=== PATIENT | female | born 1935 | race Caucasian/White ===

== ENCOUNTER → 2017-02-25 | Outpatient (CLI) | payer MEDICARE ==
[~2017-02-25] MED LIST: ALBU6.7H INH; AMIT25TA PO; AMOXICILLIN; APPLE CIDER VINEGAR PO; ASPI-621 PO; CALC-112 PO; CO Q10 PO; FISH OIL PO; FLOVENT INH; FURO80TA3 PO; GABA600T2 PO; GLUC-149 PO; LACT1CAP40 PO; LEVO112T4 PO; MELATONIN PLUS PO; MULT1TAB60 PO; NAPR220C2 PO; OMEPRAZOLE PO; POTA20TA89 PO; PRAV80TA2 PO; PREDNISONE; TYLENOL PM PO; VITAMIN B12 PO
== END | disposition home or self-care (01) ==
LOC: STAR 12:48
PROVIDERS: ATTEND Orthopaedic Surgery
DX: Z01.818 Encounter for other preprocedural examination (principal); M19.011 Primary osteoarthritis, right shoulder; R82.99 Other abnormal findings in urine
CPT/HCPCS: 81001; 87081; 87086

== ENCOUNTER 2017-03-04 07:27 | Inpatient (IN) | payer MEDICARE ==
[2017-02-25 13:23] VITALS: BP 138/65
[~2017-03-04] VITALS: Ht 167.6 cm; Wt 79.0 kg
[~2017-03-04 07:27] MED LIST changes: +ROPIvacaine/PF 0.5%, 30 ML ONE
[2017-03-04] MEDS ORDERED: VANCOMYCIN PER PHARMACY MC ONE (07:35)
[2017-03-04] MEDS ORDERED: VANCOMYCIN 1,400 MG in SODIUM CHLORIDE 0.9% 250 ML IV ONE (08:00)
[2017-03-04] MEDS ORDERED: LIDOCAINE 1%, 2ML ONE (08:09)
[2017-03-04] MEDS ORDERED: FENTANYL PF 100 MCG/2ML ONE ×2 (08:09→08:10)
[2017-03-04] MEDS ORDERED: MIDAZOLAM 1 MG/ML, 2ML ONE (08:09)
[2017-03-04] MEDS ORDERED: LACTATED RINGERS 1,000 ML IV SCH (08:10)
[2017-03-04] MEDS ORDERED: NITR100C6 PO (08:20)
[2017-03-04] MEDS ORDERED: LIDOCAINE 1%, 2ML SQ PRN (08:30)
[2017-03-04] MEDS ORDERED: BISACODYL 10 MG SUPP PR PRN (09:30)
[2017-03-04] MEDS: HYDROcodone/APAP 10/325 MG TABLET PO SCH ×5 (09:30→22:26)
[2017-03-04] MEDS ORDERED: SENNA/DOCUSATE TABLET PO PRN (09:30)
[2017-03-04] MEDS ORDERED: PROMETHAZINE 25 MG/ML, 1ML IM PRN (09:30)
[2017-03-04] MEDS ORDERED: MAGNESIUM HYDROXIDE 8%, 30ML UDC PO PRN (09:30)
[2017-03-04] MEDS ORDERED: ONDANSETRON 2MG/ML, 2ML IV PRN (09:30)
[2017-03-04] MEDS ORDERED: PROPOFOL 10 MG/ML, 20ML ONE (09:33)
[2017-03-04] MEDS ORDERED: ROCURONIUM 10 MG/ML ONE (09:33)
[2017-03-04] MEDS ORDERED: ONDANSETRON 2MG/ML, 2ML ONE (09:33)
[2017-03-04] MEDS ORDERED: CEFAZOLIN 1,000 MG ONE (09:33)
[2017-03-04] MEDS ORDERED: DEXAMETHASONE 4 MG/ML, 1ML ONE (09:33)
[2017-03-04] MEDS ORDERED: VANCOMYCIN 1,000 MG ONE (09:33)
[2017-03-04] MEDS ORDERED: MEPERIDINE/PF 25MG/0.5ML IVPush PRN (10:00)
[2017-03-04] MEDS ORDERED: ACETAMINOPHEN 325 MG TABLET PO PRN (10:00)
[2017-03-04] MEDS ORDERED: HYDROmorphone 1 MG/ML, 1ML IV PRN (10:00)
[2017-03-04] MEDS ORDERED: ONDANSETRON 2MG/ML, 2ML IVPush PRN (10:00)
[2017-03-04] MEDS ORDERED: FENTANYL PF 100 MCG/2ML IV PRN (10:00)
[2017-03-04] MEDS ORDERED: OXYcodone 5 MG/5 ML ORAL.SOL UDC PO PRN (10:00)
[2017-03-04] MEDS ORDERED: ALBUTEROL SULFATE 2.5 MG/3 ML NPPB PRN (10:00)
[2017-03-04] MEDS ORDERED: LABETALOL 5MG/ML, 20ML IV PRN (10:00)
[2017-03-04 14:23] VITALS: BP 114/69
[2017-03-04] MEDS: CEFAZOLIN PMX 1GM/50ML 50 ML IVPB SCH ×2 (14:46→23:38)
[2017-03-04] MEDS: D5%-0.45% NACL 1,000 ML IV SCH ×2 (17:43→23:35)
[2017-03-04] MEDS: morphine SULFATE 10 MG/ML, 1ML IV PRN ×5 (18:10→23:26)
[2017-03-04 20:25] VITALS: BP 120/50
[2017-03-04] MEDS: DOCUSATE 100 MG CAPSULE PO SCH (22:28)
[2017-03-04 23:31] VITALS: BP 132/78
[2017-03-05] MEDS: morphine SULFATE 10 MG/ML, 1ML IV PRN ×3 (00:44→09:35)
[2017-03-05] MEDS: HYDROcodone/APAP 10/325 MG TABLET PO SCH ×3 (02:16→10:38)
[2017-03-05 03:59] VITALS: BP_SYST 132; BP_SYST 143; BP_DIAS 71; BP_DIAS 83
[2017-03-05] MEDS: CEFAZOLIN PMX 1GM/50ML 50 ML IVPB SCH (07:45)
[2017-03-05] MEDS: DOCUSATE 100 MG CAPSULE PO SCH (07:45)
[2017-03-05 08:06] VITALS: BP 120/61
[2017-03-05] MEDS ORDERED: MULTIVITAMINS/MINERALS TABLET PO SCH (09:00)
[2017-03-05 11:56] VITALS: BP 124/60
== END 2017-03-05 12:57 | disposition home or self-care (01) | DRG 483 ==
LOC: ORIP 07:27 → 4NOR 12:38 → DCLOUNGE 03-05 12:37
PROVIDERS: ADMIT Orthopaedic Surgery; ATTEND Orthopaedic Surgery
PROC: 0RPJ04Z Removal of Internal Fixation Device from Right Shoulder Joint, Open Approach (ICD-10-PCS; 2017-03-04)
PROC: 0LS30ZZ Reposition Right Upper Arm Tendon, Open Approach (ICD-10-PCS; 2017-03-04)
PROC: 0RRJ00Z Replacement of Right Shoulder Joint with Reverse Ball and Socket Synthetic Substitute, Open Approach (ICD-10-PCS; principal; 2017-03-04 09:30)
DX: M13.811 Other specified arthritis, right shoulder (principal); J44.9 Chronic obstructive pulmonary disease, unspecified; E03.9 Hypothyroidism, unspecified; K21.9 Gastro-esophageal reflux disease without esophagitis; M75.20 Bicipital tendinitis, unspecified shoulder; E78.00 Pure hypercholesterolemia, unspecified; Z96.652 Presence of left artificial knee joint; Z90.49 Acquired absence of other specified parts of digestive tract; Z90.89 Acquired absence of other organs; Z90.710 Acquired absence of both cervix and uterus; Z98.49 Cataract extraction status, unspecified eye
CPT/HCPCS: C1713; C1776; J0690; J1100; J2250; J2405; J2550; J2704; J2795; J3010; J3370; J3490; C1769; J2270; J7050; J7120